=== PATIENT | male | born 1945 | race Caucasian/White ===

== ENCOUNTER 2017-02-27 08:17 | Inpatient (IN) | payer MEDICARE ==
[2017-02-17 20:28] LABS: BASOPHILS 0.6 %; BASOPHILS ABSOLUTE 0.04 10/3/uL (0.0-0.16); EOSINOPHILS 4.2 %; EOSINOPHILS ABSOLUTE 0.27 10/3/uL (0.0-0.53); HEMATOCRIT 45.6 % (40.0-51.0); IMMATURE GRANULOCYTES 0.2 %; IMMATURE GRANULOCYTES ABSOLUTE 0.01 10/3/uL (0.0-0.11); LYMPHOCYTES ABSOLUTE 2.36 10/3/uL (0.67-4.30); MEAN CORPUS HGB CONC 35.1 g/dL (32.0-36.0); MEAN PLATELET VOLUME 11.8 fL (9.2-13.0); MONOCYTES 9.9 %; MONOCYTES ABSOLUTE 0.63 10/3/uL (0.21-1.20); NEUTROPHILS 48.1 %; NEUTROPHILS ABSOLUTE 3.06 10/3/uL (2.02-8.40); PLATELET COUNT 150 10/3/uL (150-400); RBC DISTRIBUTION WIDTH 14.1 % (12.0-16.0); WHITE BLOOD CELLS 6.4 10/3/uL (4.5-10.5)
[2017-02-17 20:32] LABS: MANUAL DIFF NO %
[2017-02-17 20:52] LABS: A/G RATIO 1.1 (0.7-1.9); ALKALINE PHOSPHATASE 77 U/L (45-117); CALCIUM, SERUM 9.8 MG/DL (8.5-10.4); CHLORIDE, SERUM 112 MMOL/L (96-112); CO2 (CARBON DIOXIDE) 21 MMOL/L (24-34); GLOBULIN 3.5 G/DL (2.5-4.1); GLUCOSE, SERUM 82 MG/DL (60-99); POTASSIUM, SERUM 4.6 MMOL/L (3.5-5.3); SGOT(AST) 18 U/L (5-40); SGPT(ALT) 30 U/L (5-65); SODIUM, SERUM 144 MMOL/L (135-148); TOTAL BILIRUBIN 0.5 MG/DL (0-1.2); TOTAL PROTEIN 7.4 G/DL (6.0-8.5)
[2017-02-17 20:53] LABS: ALBUMIN 3.9 G/DL (3.5-5.0); BUN (BLOOD UREA NITROGEN) 41 MG/DL (6-23); CREATININE 1.45 MG/DL (0.70-1.30); GFR AFRICAN AMERICAN 56 ML/MIN (>=60); GFR NON AFRICAN AMERICAN 48 ML/MIN (>=60)
--- NOTE | ~2017-02-27 | CN ---
Consultation Report [facility] [address] [place]. [address] NAME: ODILON RIBEIRO JR : 45 STATUS : ADM IN PAT#: [id number] AGE: 71 ADM/REG DATE : 02/27/17 MR#: [id number] REPORT SERV DATE: 03/01/17 DICTATED BY: DATE: REPORT STATUS : Draft TRANSCRIBED BY: MODL DATE: 03/01/17 CONSULTATION DATE OF CONSULTATION: REASON FOR CONSULTATION: Acute kidney injury. HISTORY OF PRESENT ILLNESS: Mr. Ribeiro is a 71-year-old white male, with a history of colon cancer, status post colectomy, CHF atrial fibrillation, and diabetes. In regard to kidney function, he states that he has had some abnormal kidney function that he has been aware of in the past, what level he is unclear on. He is in the hospital at this time for an incisional hernia repair. His preoperative labs, he had a creatinine of 1.4, it was up to 1.8 yesterday, it is 1.7 and today. He is nonoliguric and had 2.6 L of urine output yesterday. Denies any dysuria or hematuria. He has had poor p.o. fluid intake as he can't drink the water here. No nausea, vomiting, or diarrhea. No shortness of breath, chest pain, or tightness. He does not know what his EF is and I do not see any record in the hospital computer of his ejection fraction. PAST MEDICAL HISTORY: Diabetes, CHF, atrial fibrillation, hyperlipidemia, obstructive sleep apnea, colon cancer, right colectomy, right hip repair, pacemaker, coronary artery disease with stenting. FAMILY MEDICAL HISTORY: No end-stage renal disease. Positive for heart disease and cancer. SOCIAL HISTORY: He is . No tobacco, alcohol, or illicit drug use. ALLERGIES: NONE. MEDICATIONS: Zyloprim, aspirin, Flonase, Neurontin, NovoLog, Prinivil, Betapace, Aldactone, Demadex, Coumadin, and Levemir. REVIEW OF SYSTEMS: A 12-point review of systems was obtained, and negative with the exception of that in HPI. PHYSICAL EXAMINATION: VITAL SIGNS: Temperature 97.7, blood pressure, 85/49, pulse 60, respiratory rate 18, O2 saturation is 94% on 2 L. GENERAL: This is a pleasant, cooperative, white male. He is awake, alert, and oriented x3. In no acute distress. Answers questions appropriately. HEENT: Normocephalic and atraumatic. Conjunctivae clear. Sclerae anicteric. Oral mucosa is dry. NECK: Thick. No neck vein distention. No lymphadenopathy. LUNGS: Respirations are even and unlabored. Breath sounds are clear to auscultation. HEART: Rate is regular. No murmur, rub, or gallop. Consultation Report [facility] [address] [place]. [address] NAME: ODILON RIBEIRO JR : 45 STATUS : ADM IN PAT#: [id number] AGE: 71 ADM/REG DATE : 02/27/17 MR#: [id number] REPORT SERV DATE: 03/01/17 DICTATED BY: DATE: REPORT STATUS : Draft TRANSCRIBED BY: MODYadira DATE: 03/01/17 ABDOMEN: Obese soft, nontender. Bowel sounds active. No CVA tenderness. BACK: Within normal limits. EXTREMITIES: No edema, cyanosis, or clubbing. SKIN: Warm, dry, and intact. No unusual rash or skin lesions. NEURO: Generalized weakness. No focal deficits. Mood and affect, pleasant and appropriate. PERTINENT LABS AND X-RAYS: Sodium 141, potassium 5.1, chloride 113, CO2 19, BUN 16, creatinine 1.7, calcium 9.6, glucose 98, WBCs 9.5, H and H 14 and 41, and platelets 147,000. IMPRESSION: 1. Nonoliguric acute kidney injury. 2. Suspect some degree of chronic kidney disease. 3. Hypotension postoperatively. 4. History of congestive heart failure with unknown EF. 5. Diabetes. 6. Status post incisional hernia repair, postop day #2. 7. Colon cancer, status post right colectomy. PLAN/RECOMMENDATION: Acute kidney injury in the setting of postop hypotension plus or minus some mild dehydration. His I's and O's overnight were negative. We will give 1 L of IV fluids, also, hold Aldactone, lisinopril, and Demadex. Follow urine output and labs. Check urine studies and follow along with you. Thank you for the consultation. JULES/DIAZ KORTNEY Linn / [id number] CC: Jacqui Salas III, M.D.
--- NOTE | ~2017-02-27 | DS ---
Discharge Summary [facility] [address] [place]. [address] NAME: ODILON RIBEIRO JR : 45 STATUS : DIS IN PAT#: [id number] AGE: 71 ADM/REG DATE : 02/27/17 MR#: [id number] REPORT SERV DATE: 03/14/17 DICTATED BY: CHRIS MORALES III DATE: 03/13/17 REPORT STATUS : Draft TRANSCRIBED BY: DIAZ DATE: 03/13/17 Data Collection from hospitalization DISCHARGE DIAGNOSES: 1. Symptomatic incisional hernia/incarcerated incisional hernia. 2. Insulin-dependent diabetes mellitus. 3. Hypertension. 4. History of T3 N0 M0 right colon cancer, status post colectomy. 5. Obesity. 6. History of congestive heart failure. 7. History of atrial fibrillation. 8. History of hyperlipidemia. 9. History of sleep apnea. CONSULTATIONS: KORTNEY Linn PROCEDURES: Open repair of incarcerated incisional hernia with placement of Prolene mesh, 02/27/2017. DISCHARGE MEDICATIONS: Zyloprim 300 mg every day at bedtime; amoxicillin 500 mg four times a day as needed; aspirin 81 mg daily; Lipitor 20 mg at bedtime; vitamin D 2000 units daily; CoQ10, 400 mg daily; Flonase nasal spray two sprays nasally daily; Neurontin 1800 mg at bedtime; NovoLog injection insulin as instructed; Lantus injection insulin 47 units subcutaneously at bedtime; Prinivil 40 mg twice a day as instructed; Nitrostat 0.4 mg sublingually as needed; Lovaza 2 g twice a day; Percocet 7.5/325 one tablet three times a day as needed; Betapace 80 mg every 12 hours; Aldactone 50 mg daily; vitamin E 400 units twice a day; Demadex 5 mg daily; Align probiotic 4 mg daily; Beelith magnesium 362 mg daily; Centrum Silver one at bedtime; Move Free two tablets daily; magnesium 362 mg daily; Coumadin 5.5 mg daily. CONDITION ON DISCHARGE: Stable. DISPOSITION: The patient was discharged home on an 1800-calorie, low-cholesterol, diabetic diet with no concentrated carbohydrates and activities as instructed. He would follow up with me on 03/17/2017. He would follow up with [facility] on 03/19/2017. HOSPITAL COURSE: This is a 71-year-old man, who has a symptomatic periumbilical incisional hernia. The hernia was becoming larger with time. He had no nausea, vomiting, or obstructive symptoms. Treatment options were discussed, and it was elected to proceed with surgical intervention. He was admitted to the hospital at this time for further evaluation and treatment. Upon admission, he was taken to the operating room, where he underwent the abovementioned procedure, he tolerated this well, there were no complications. On postop day one, he had no new complaints. He was alert and comfortable. He was afebrile. Coumadin was going to be resumed. On 03/01, he said he felt well and wanted to go home. He was eating and ambulating well. He was afebrile. He was seen in consultation by Lizzie Sosa regarding acute kidney injury. Preoperative labs had revealed creatinine of 1.4; the day prior to Discharge Summary [address] [address] NAME: ODILON RIBEIRO : 45 STATUS : DIS IN PAT#: [id number] AGE: 71 ADM/REG DATE : 02/27/17 MR#: [id number] REPORT SERV DATE: 03/14/17 DICTATED BY: CHRIS MORALES III DATE: 03/13/17 REPORT STATUS : Draft TRANSCRIBED BY: DIAZ DATE: 03/13/17 this consult, it was 1.8 and at the time of this consult, it was 1.7. He was nonoliguric and had 2.6 L of urine output the day previously. He denied any dysuria or hematuria. He has had poor oral fluid intake as he cannot drink the water here. He was felt to have nonoliguric acute kidney injury. It was suspected that there was some degree of chronic kidney disease. He had some postoperative hypotension. He has a history of congestive heart failure with unknown ejection fraction. He was felt to have acute kidney injury in the setting of postop hypotension plus or minus some mild dehydration. He was going to be given 1 L of IV fluids. Aldactone was going to be held as well as lisinopril and Demadex. Urine studies were going to be checked. On 03/02, he was tolerating his diet well. He had no new complaints. He was afebrile. Discharge planning was performed. On 03/03/2017, he said he felt well and was anxious to go home. He remained afebrile. Creatinine level was 1.56. Aldactone was held. Sotalol was continued. Discharge instructions were given. Due to his improved and stable condition, he was discharged home with the above-stated instructions. Information collected by: Sabine Ward I submit the above information as my discharge summary. TG/TREYL Chris Morales III, M.D. / [id number] CC: Jacqui Salas III, M.D. Jessica Craig, FNP
--- NOTE | ~2017-02-27 | PREOPHP ---
PreOp History and Physical [facility] [address] [place]. [address] NAME: ODILON RIBEIRO JR : 45 STATUS : PRE IN PAT#: [id number] AGE: 71 ADM/REG DATE : MR#: [id number] REPORT SERV DATE: 02/27/17 DICTATED BY: CHRIS MORALES III DATE: 02/11/17 REPORT STATUS : Draft TRANSCRIBED BY: MODYadira DATE: 02/11/17 HISTORY OF PRESENT ILLNESS: This 71-year-old male comes to the operating room for open repair of a symptomatic periumbilical incisional hernia. The patient has a periumbilical incisional hernia. This hernia is becoming larger with time. The patient has no nausea, vomiting, or obstructive symptoms. He comes to the operating room now for repair of this hernia. PAST MEDICAL HISTORY: 1. History of T3, N0, M0 right colon cancer, status post right colectomy performed on 12/08/2012, with no evidence for recurrent disease. 2. Hypertension. 3. Obesity. 4. Insulin-dependent diabetes mellitus. 5. History of congestive heart failure. 6. History of atrial fibrillation. 7. History of hyperlipidemia. 8. History of sleep apnea. MEDICATIONS: Coumadin, insulin, Lipitor, lisinopril, Lovaza, Sotalol, torsemide, vitamins, Aldactone, gabapentin, Nitrostat, aspirin, allopurinol, and fluticasone. PAST SURGICAL HISTORY: Includes right hip replacement, pacemaker placement with coronary artery stent placement, and right colectomy. FAMILY HISTORY: Positive for cancer and heart disease. SOCIAL HISTORY: No history of tobacco or alcohol use. REVIEW OF SYSTEMS: The patient's 14-point review of systems is otherwise unremarkable. ALLERGIES: NONE. PHYSICAL EXAMINATION: GENERAL: Physical exam reveals an obese male, in no acute distress. He is alert and oriented x3. VITAL SIGNS: Blood pressure 115/73, pulse 85, temperature 97. HEENT: Unremarkable. Cranial nerves 2 through 12 are normal. LUNGS: Clear. CARDIAC: Normal. ABDOMEN: Soft. Nontender. He has a well-healed midline incision. He has a periumbilical incisional hernia, which is reducible. The hernia is primarily above the navel. EXTREMITIES: Normal. ASSESSMENT: 1. A 71-year-old male with enlarging periumbilical incisional hernia. 2. History of colon cancer, T3, N0, status post right colectomy, with no evidence for PreOp History and Physical [address] [address] NAME: ODILON RIBEIRO JR : 45 STATUS : PRE IN PAT#: [id number] AGE: 71 ADM/REG DATE : MR#: [id number] REPORT SERV DATE: 02/27/17 DICTATED BY: CHRIS MORALES III DATE: 02/11/17 REPORT STATUS : Draft TRANSCRIBED BY: DIAZ DATE: 02/11/17 recurrent disease. 3. Atrial fibrillation requiring chronic Coumadin therapy. 4. Obesity. 5. Diabetes mellitus. 6. Hyperlipidemia. 7. Sleep apnea. 8. History of congestive heart failure. 9. Hypertension. PLAN: The patient comes to the operating room now for open repair of this incisional hernia. This procedure, the risks, benefits, and alternatives, including not limited to the risk for bleeding, infection, enterotomy, injury to abdominal structure, postop small bowel obstruction with ileus, recurrence of the hernia, seroma formation, hematoma formation, need for use of mesh, risk of infection of mesh, or enterocutaneous fistula requiring removal of the mesh, and unforeseen complications including deep venous thrombosis, pulmonary embolus, myocardial infarction, stroke, pneumonia, and , have been explained to the patient prior to surgery. The fact that this is a major operation with risk for major morbidity and mortality has been explained as well as expected length of recovery. The fact that he is at increased risk for thromboembolic complications while his Coumadin is held perioperatively has been explained as well as increased risk of bleeding because the use of this medication. The patient's questions have been answered. He understands the risks and agrees to surgery as planned. JERI/DIAZ Chris Morales III, M.D. / [id number]
--- NOTE | ~2017-02-27 | OP ---
Record Of Operation [facility] [address] [place]. [address] NAME: ODILON RIBEIRO JR : 45 STATUS : ADM IN [facility]#: [id number] AGE: 71 ADM/REG DATE : 02/27/17 MR#: [id number] REPORT SERV DATE: 02/28/17 DICTATED BY: CHRIS MORALES III DATE: 02/28/17 REPORT STATUS : Draft TRANSCRIBED BY: MODL DATE: 02/28/17 DATE OF PROCEDURE: 02/27/2017 PREOPERATIVE DIAGNOSIS: Symptomatic incisional hernia. POSTOPERATIVE DIAGNOSES: Symptomatic incisional hernia, incarcerated incisional hernia. PROCEDURE: Open repair of the incarcerated incisional hernia with placement of Prolene mesh. SURGEON: Chris Morales M.D. ANESTHESIA: General with intubation. COMPLICATIONS: None. ESTIMATED BLOOD LOSS: Less than 5 mL. SPECIMENS: None. DRAINS: Samm-Pham in subcutaneous tissue. LAP AND SPONGE COUNT: Correct x3. BRIEF HISTORY: This 71-year-old male presented with evidence for a symptomatic incisional hernia. This was then periumbilical hernia related to a previous colon resection. It was felt that open repair of this hernia was indicated. This procedure, the risks, benefits, and alternatives, including but not limited to the risk for bleeding, infection, enterotomy, injury to abdominal structure, postop small bowel obstruction, ileus, recurrence of the hernias, seroma formation, hematoma formation, infection of the mesh, or enterocutaneous fistula requiring removal of the mesh, and unforeseen complications including deep venous thrombosis, pulmonary embolus, myocardial infarction, stroke, pneumonia, and were fully and completely explained to the patient prior to the surgery. The fact that this was a major operation with risk for major morbidity and mortality and no guarantee for relief of his symptoms were explained. The expected length of recovery with open laparoscopic procedures was explained to the patient. The patient had questions, which were answered. He fully understood the risks and agreed to the surgery as planned. FINDINGS: The patient had a periumbilical incisional hernia which was chronically incarcerated. There were dense adhesions between several loops of small bowel and the underside of the abdominal wall and the hernia sac. These adhesions were carefully divided, and great care was taken not to perform an enterotomy. DESCRIPTION OF PROCEDURE: After being properly identified and after discussing the risks and benefits of the surgery with the patient's family again in the preoperative area, and after identifying the hernia with him in the preoperative area, the patient was taken to the operating room, and placed in the supine position on the operating room table. General Record Of Operation [facility] [address] [place]. [address] NAME: ODILON RIBEIRO JR : 45 STATUS : ADM IN PAT#: [id number] AGE: 71 ADM/REG DATE : 02/27/17 MR#: [id number] REPORT SERV DATE: 02/28/17 DICTATED BY: CHRIS MORALES III DATE: 02/28/17 REPORT STATUS : Draft TRANSCRIBED BY: DIAZ DATE: 02/28/17 anesthesia was administered, and he was intubated without difficulty. The abdomen then was prepped and draped sterilely in the usual fashion. After an appropriate "time-out" per JCAHO standards, a vertical incision was made directly over the hernia, beginning several centimeters above the navel, continuing to just below the navel, over the previous incision. The incision was continued through subcutaneous tissue. Hemostasis was controlled with the cautery. We immediately encountered a hernia sac in the fascial defect. There was omentum and small bowel chronically incarcerated within the hernia. Using sharp dissection, the hernia sac was opened and excised. The omentum and the small bowel were carefully dissected away from the surrounding subcutaneous tissue and fascia. These were carefully reduced back in the abdominal cavity. Using sharp dissection, the skin and subcutaneous tissue around the defect was mobilized anteriorly for about 3 cm so as to fully define the fascial edges anteriorly. There were further adhesions between the omentum and small bowel posteriorly, and these were carefully divided so as to clearly define the edges of the fascial defect both anteriorly and posteriorly. Hemostasis was meticulously assured. A Ventralight Prolene light weight mesh was then selected and cut to the appropriate size for the defect. This was placed beneath the defect so as to overlap the edges of the defect posteriorly by about 3 cm. The mesh was then secured around the edges of the defect with short segments of interrupted #1 Prolene sutures. Upon completion of this, the mesh lay nicely beneath the defect in an overlay fashion. It was not twisted or kinked in anyway and it was not under any tension. The area was irrigated copiously with saline. Hemostasis was assured. A Samm-Pham drain was brought through a separate stab wound and placed in the subcutaneous tissue. The subcutaneous tissue was closed with a running 3-0 chromic suture. The skin was closed with a running subcuticular 4-0 Monocryl stitch. The incision was injected with 0.5% Marcaine. Dressings were applied. Anesthesia was reversed, and the patient was taken to the recovery room in stable condition. He tolerated the procedure well. His family was informed the results of the surgery. The patient will remain in the hospital for postoperative care. RHJ/MODL Chris Morales III, M.D. / [id number] CC: Jacqui Salas III, M.D.
[~2017-02-27 08:17] MED LIST: ACARBOSE50 MG OR; ALIGN PROBIOTIC PO; AMARYL4 PO; AMOXIL500 MG PO; ASAB PO; AUG500 PO; BEELITH PO; BETAPACE80 PO; BYETTA10 SC; C5 PO; CENTRUM SILVER PO; CIPRODEX OT; CIPROFLOXACIN OT; COQ-10200 MG OR; CORDARONE PO; COREG25 PO; COUMADIN4 MG PO; COUMADIN6 MG PO; DEMA20 PO; DEMADEX5 MG PO; DEXAMETHASONE OT; FERRETTS325 MG PO; FLONASE NAS; LANTUS SC; LIPITOR20 PO; LISINOPRIL40 MG PO; LOVAZA1 GM PO; MAGNESIUM PO; METANX PO; MOVE FREE PO; NEUR600 PO; NITROSTAT0.4 MG; NITROSTAT0.4 MG SL; NORCO1 TA1 PO; NOVOLOG SC; PLAVIX PO; PRILO PO; PROTONIX PO; REG PO; SPIRO25 PO; VITAMIN D1000 UNI1 PO; VITAMIN E PO; VITE PO; Z300 PO
[2017-02-27 09:05] LABS: INTERNATIONAL NORMAL RATI 1.4 UNITS (-)
[2017-02-27 09:08] LABS: PROTIME (NOT ORD) 17.2 SEC (12.0-14.5)
[2017-02-27 16:16] LABS: INTERNATIONAL NORMAL RATI 1.4 UNITS (-); PROTIME (NOT ORD) 16.8 SEC (12.0-14.5)
[2017-02-28 06:29] LABS: BASOPHILS 0.2 %; BASOPHILS ABSOLUTE 0.02 10/3/uL (0.0-0.16); EOSINOPHILS 0.5 %; EOSINOPHILS ABSOLUTE 0.05 10/3/uL (0.0-0.53); HEMATOCRIT 41.6 % (40.0-51.0); HEMOGLOBIN 14.7 g/dL (13.6-17.8); IMMATURE GRANULOCYTES 0.3 %; IMMATURE GRANULOCYTES ABSOLUTE 0.03 10/3/uL (0.0-0.11); LYMPHOCYTES 19.2 %; LYMPHOCYTES ABSOLUTE 1.81 10/3/uL (0.67-4.30); MEAN CORPUS HGB CONC 35.3 g/dL (32.0-36.0); MEAN CORPUSCULAR HEMOGLOB 33.6 pg (26.0-34.0); MEAN PLATELET VOLUME 11.4 fL (9.2-13.0); MONOCYTES 9.7 %; MONOCYTES ABSOLUTE 0.92 10/3/uL (0.21-1.20); NEUTROPHILS 70.1 %; NEUTROPHILS ABSOLUTE 6.62 10/3/uL (2.02-8.40); PLATELET COUNT 147 10/3/uL (150-400); RBC DISTRIBUTION WIDTH 13.6 % (12.0-16.0); RED CELL COUNT 4.38 10/6/uL (4.7-6.1)
[2017-02-28 06:30] LABS: MANUAL DIFF NO %; WHITE BLOOD CELLS 9.5 10/3/uL (4.5-10.5)
[2017-02-28 06:33] LABS: INTERNATIONAL NORMAL RATI 1.3 UNITS (-); PROTIME (NOT ORD) 16.3 SEC (12.0-14.5)
[2017-02-28 06:36] LABS: CHLORIDE, SERUM 114 MMOL/L (96-112); CREATININE 1.85 MG/DL (0.70-1.30); GFR AFRICAN AMERICAN 42 ML/MIN (>=60); GFR NON AFRICAN AMERICAN 36 ML/MIN (>=60); GLUCOSE, SERUM 94 MG/DL (60-99); POTASSIUM, SERUM 5.5 MMOL/L (3.5-5.3); SODIUM, SERUM 141 MMOL/L (135-148)
[2017-02-28 06:37] LABS: BUN (BLOOD UREA NITROGEN) 60 MG/DL (6-23); CALCIUM, SERUM 8.8 MG/DL (8.5-10.4); CO2 (CARBON DIOXIDE) 16 MMOL/L (24-34)
[2017-02-28 15:44] LABS: INTERNATIONAL NORMAL RATI 1.3 UNITS (-); PROTIME (NOT ORD) 16.4 SEC (12.0-14.5)
[2017-03-01 05:46] LABS: INTERNATIONAL NORMAL RATI 1.3 UNITS (-); PROTIME (NOT ORD) 16.1 SEC (12.0-14.5)
[2017-03-01 07:33] LABS: BUN (BLOOD UREA NITROGEN) 63 MG/DL (6-23); CALCIUM, SERUM 9.6 MG/DL (8.5-10.4); CHLORIDE, SERUM 113 MMOL/L (96-112); CO2 (CARBON DIOXIDE) 19 MMOL/L (24-34); CREATININE 1.76 MG/DL (0.70-1.30); GFR AFRICAN AMERICAN 44 ML/MIN (>=60); GFR NON AFRICAN AMERICAN 38 ML/MIN (>=60); GLUCOSE, SERUM 98 MG/DL (60-99); POTASSIUM, SERUM 5.1 MMOL/L (3.5-5.3); SODIUM, SERUM 141 MMOL/L (135-148)
[2017-03-01 17:07] LABS: INTERNATIONAL NORMAL RATI 1.3 UNITS (-); PROTIME (NOT ORD) 16.1 SEC (12.0-14.5)
[2017-03-02 06:57] LABS: BASOPHILS 0.8 %; BASOPHILS ABSOLUTE 0.06 10/3/uL (0.0-0.16); EOSINOPHILS ABSOLUTE 0.31 10/3/uL (0.0-0.53); HEMOGLOBIN 13.9 g/dL (13.6-17.8); IMMATURE GRANULOCYTES 0.3 %; IMMATURE GRANULOCYTES ABSOLUTE 0.02 10/3/uL (0.0-0.11); LYMPHOCYTES 33.2 %; MEAN CORPUS HGB CONC 34.8 g/dL (32.0-36.0); MEAN CORPUSCULAR HEMOGLOB 33.4 pg (26.0-34.0); MEAN CORPUSCULAR VOLUME 96.2 fL (80-100); MEAN PLATELET VOLUME 11.1 fL (9.2-13.0); MONOCYTES 11.4 %; MONOCYTES ABSOLUTE 0.89 10/3/uL (0.21-1.20); NEUTROPHILS 50.3 %; NEUTROPHILS ABSOLUTE 3.94 10/3/uL (2.02-8.40); PLATELET COUNT 139 10/3/uL (150-400); RBC DISTRIBUTION WIDTH 13.9 % (12.0-16.0); RED CELL COUNT 4.16 10/6/uL (4.7-6.1); WHITE BLOOD CELLS 7.8 10/3/uL (4.5-10.5)
[2017-03-02 06:58] LABS: MANUAL DIFF NO %
[2017-03-02 07:02] LABS: INTERNATIONAL NORMAL RATI 1.4 UNITS (-); PROTIME (NOT ORD) 16.7 SEC (12.0-14.5)
[2017-03-02 07:15] LABS: ALBUMIN 2.9 G/DL (3.5-5.0); BUN (BLOOD UREA NITROGEN) 56 MG/DL (6-23); CALCIUM, SERUM 9.3 MG/DL (8.5-10.4); CHLORIDE, SERUM 112 MMOL/L (96-112); CO2 (CARBON DIOXIDE) 21 MMOL/L (24-34); CREATININE 1.56 MG/DL (0.70-1.30); GFR AFRICAN AMERICAN 51 ML/MIN (>=60); GFR NON AFRICAN AMERICAN 44 ML/MIN (>=60); GLUCOSE, SERUM 96 MG/DL (60-99); PHOSPHORUS, SERUM 2.1 MG/DL (2.5-4.5); SODIUM, SERUM 141 MMOL/L (135-148)
[2017-03-03 06:50] LABS: INTERNATIONAL NORMAL RATI 1.6 UNITS (-); PROTIME (NOT ORD) 18.6 SEC (12.0-14.5)
[2017-03-03] MEDS ORDERED: PERCOCET 7.5/321 TAB PO (09:20)
== END 2017-03-03 14:53 | disposition home or self-care (01) | DRG 354 ==
LOC: SDC/OF 08:17 → PACU 12:21 → 5SO 15:17
PROVIDERS: Nurse Practitioner; Surgery
PROC: 0WUF0JZ Supplement Abdominal Wall with Synthetic Substitute, Open Approach (ICD-10-PCS; principal; 2017-02-27 10:00)
DX: K43.0 Incisional hernia with obstruction, without gangrene (principal); N17.9 Acute kidney failure, unspecified; I50.9 Heart failure, unspecified; I48.2 Chronic atrial fibrillation; I12.9 Hypertensive chronic kidney disease with stage 1 through stage 4 chronic kidney disease, or unspecified chronic kidney disease; E11.9 Type 2 diabetes mellitus without complications; E66.9 Obesity, unspecified; E78.5 Hyperlipidemia, unspecified; Z68.36 Body mass index [BMI] 36.0-36.9, adult; G47.33 Obstructive sleep apnea (adult) (pediatric); Z79.4 Long term (current) use of insulin; Z96.641 Presence of right artificial hip joint; Z85.038 Personal history of other malignant neoplasm of large intestine; Z79.899 Other long term (current) drug therapy; Z79.01 Long term (current) use of anticoagulants; Z79.82 Long term (current) use of aspirin; Z95.0 Presence of cardiac pacemaker; Z95.5 Presence of coronary angioplasty implant and graft; Z90.49 Acquired absence of other specified parts of digestive tract; Z98.890 Other specified postprocedural states
CPT/HCPCS: 36415; 71020-PO; 80048; 80053; 80069; 81001; 82570; 82962; 83735; 84300; 85025; 85610; 87641; A9270-GY; C1781; J0690; J2250; J2405; J2710; J2795; J3010